=== PATIENT | female | born 1960 | race Caucasian/White ===

== ENCOUNTER 2019-06-12 14:39 | Outpatient (CLI) | payer OTHER ==
--- NOTE | 2019-06-12 14:58 | RAD ---
Left knee 2 views: 06/12/2019 COMPARISON: None HISTORY: Left-sided knee pain FINDINGS: There is prominent medial compartment narrowing with subchondral sclerosis and osteophyte f ormation of the medial femoral condyle. There is moderate patellofemoral joint space narrowing. No knee joint effusion, fracture, or dislocation. IMPRESSION: Degenerative joint disease.
== END 2019-06-12 14:40 | disposition home or self-care (01) ==
LOC: BICRAD 14:39
PROVIDERS: ATTEND Family Medicine
DX: M25.562 Pain in left knee (principal); M17.12 Unilateral primary osteoarthritis, left knee

== ENCOUNTER 2022-06-05 10:14 | Outpatient (CLI) | payer OTHER | END 2022-06-05 10:15 | disposition home or self-care (01) | LOC: BICMAMMO 10:14 | PROVIDERS: ATTEND Family Medicine | DX: Z13.820 Encounter for screening for osteoporosis (principal); Z78.0 Asymptomatic menopausal state; M85.88 Other specified disorders of bone density and structure, other site | CPT/HCPCS: 77080 ==

== ENCOUNTER 2023-10-06 09:56 | Outpatient (CLI) | payer MEDICARE, OTHER | END 2023-10-06 09:57 | disposition home or self-care (01) | LOC: BICMRI 09:56 | PROVIDERS: ATTEND Nurse Practitioner Family | DX: M79.604 Pain in right leg (principal); M89.8X5 Other specified disorders of bone, thigh ==